=== PATIENT | male | born 1980 | race Caucasian/White ===

== ENCOUNTER 2017-03-12 13:32 | Emergency (ER) | payer SELFPAY ==
[2017-03-12 13:34] VITALS: BP 145/98
[2017-03-12] MEDS ORDERED: IBUPROFEN 200 MG TABLET ONE (14:20)
[2017-03-12] MEDS ORDERED: HYDROcodone/APAP 5/325 TABLET ONE (14:20)
[2017-03-12] MEDS ORDERED: HYDROcodone/APAP 5/325 TABLET PO ONE (14:30)
[2017-03-12] MEDS ORDERED: IBUPROFEN 200 MG TABLET PO ONE (14:30)
== END 2017-03-12 14:38 | disposition home or self-care (01) ==
LOC: ED 14:10
DX: K08.89 Other specified disorders of teeth and supporting structures (principal)
CPT/HCPCS: 99283

== ENCOUNTER 2017-04-05 09:37 | Emergency (ER) | payer SELFPAY ==
[~2017-04-05] VITALS: Ht 193 cm; Wt 93.0 kg
[2017-04-05] MEDS ORDERED: HYDROmorphone 1 MG/ML, 1ML ONE (11:41)
[2017-04-05] MEDS ORDERED: ONDANSETRON ODT 4 MG ONE (11:41)
[2017-04-05] MEDS ORDERED: ONDANSETRON ODT 8 MG PO ONE (12:00)
[2017-04-05] MEDS ORDERED: HYDROmorphone 1 MG/ML, 1ML IM ONE (12:00)
[2017-04-05 12:48] VITALS: BP 111/76
== END 2017-04-05 12:52 | disposition home or self-care (01) ==
LOC: ED 11:46
DX: G43.909 Migraine, unspecified, not intractable, without status migrainosus (principal)
CPT/HCPCS: 96372; 99283; J1170; Q0162